=== PATIENT | male | born 1965 | race Caucasian/White ===

== ENCOUNTER 2020-03-24 02:20 | Emergency (ER) | payer SELFPAY ==
[2020-03-24] VITALS (10 sets, daily range): BP systolic 153–195; BP diastolic 101–114; PULSE 58–84; RESP 20; TEMP 36.9; O2SAT 90–96; BMI 32.1
[2020-03-24] MEDS: SODIUM CHLORIDE 0.9% 1,000 ML 1000 ML IV (02:41)
[2020-03-24] MEDS: PANTOPRAZOLE 40 MG VIAL IV (02:41)
[2020-03-24] MEDS: ONDANSETRON 4 MG/2 ML INJ IV (02:41)
--- NOTE | 2020-03-24 02:45 | ED_ITS ---
HPI - Nausea/Vomiting/Diarrhea General Chief complaint: Nausea/Vomiting/Diarrhea Stated complaint: Vomitting x2 hours Time Seen by Provider: 03/24/20 02:27 Source: patient Mode of arrival: Ambulatory Limitations: no limitations History of Present Illness HPI Narrative: Patient is a 54-year-old male with no past medical history presenting today with vomiting for the last few hours. He says he has been awake from was 24 hours but started vomiting just a few hours ago. He is dry heaving he has abdominal pain he is sweaty. No on else is sick. He was feeling well earlier in the day he has overall just tired. He has not been to a doctor in a while. He denies any diarrhea he has some epigastric pain but no other abdominal pain MD complaint: nausea and vomiting Onset (ago): hour(s) Description of Diarrhea: none Location of pain: epigastric Related Data Previous Rx's Medication Instructions Recorded ondansetron 4 mg PO Q8H PRN #10 tab 03/24/20 Allergies Allergy/AdvReac Type Severity Reaction Status Date / Time No Known Drug Allergies Allergy Verified 03/24/20 02:41 Review of Systems Review of Systems Narrative: GENERAL: Denies chills, fatigue, malaise, fever, sweats, travel HEENT: Denies sinus pain, ear pain, sore throat, difficulty swallowing, neck pain RESPIRATORY: Denies dyspnea, cough, wheezing, hemoptysis, sputum. CARDIOVASCULAR: Denies chest pain, palpitations, orthopnea, edema GASTROINTESTINAL: See HPI : Denies dysuria, frequency, incontinence, hematuria, urinary retention, flank pain. MUSCULOSKELETAL: Denies weakness, joint pain, or bony pain SKIN: No rash, no erythema, no pruritus NEUROLOGIC: Denies weakness, dizziness, headache, numbness, change in speech, confusion PSYCHIATRIC: No concerning psychosocial issues. 12 point review of systems is negative except for those stated above and HPI Patient History Medical History (Updated 03/24/20 @ 06:52 by Elaine Zayas DO) Patient denies medical problems Substance Use Type: marijuana (Daily) Exam Initial Vital Signs Initial Vital Signs: Vital Signs Temperature 98.4 F 03/24/20 02:30 Pulse Rate 74 03/24/20 02:30 Respiratory Rate 20 03/24/20 02:30 Blood Pressure 153/101 H 03/24/20 02:30 Pulse Oximetry 95 03/24/20 02:30 GENERAL: Actively dry heaving slightly diaphoretic and in no acute distress. HEENT: Head atraumatic,EOMI, pupils reactive, face symmetric, moist mucous membranes CARDIOVASCULAR: Regular rate and rhythm without murmurs, rubs or gallops. RESPIRATORY: Breath sounds equal bilaterally, no wheezes rales or rhonchi. ABDOMEN: Soft, nontender. Normoactive bowel sounds all 4 quadrants. No guarding or rebound. EXTREMITIES: Normal range of motion, no clubbing or edema. Neurovascularly intact NEUROLOGICAL: Alert and oriented x4.Normal gait and speech. Cranial nerves II through XII grossly intact. SKIN: Warm, dry, no laceration, no petechiae, no rashes or lesions. Course Orders Ordered: ED Orders 03/24/20 02:35 Complete Blood Count AUTO DIFF Stat Comprehensive Metabolic Panel Stat Lactate (Lactic Acid) Stat Lipase Stat Pathologist Review (for CBC) Stat Procalcitonin Stat 03/24/20 02:52 COVID19 Stat 03/24/20 03:00 CT abdomen pelvis w con Stat 03/24/20 03:15 Blood Culture Stat 03/24/20 03:39 XR chest 1V Stat 03/24/20 06:41 Miscellaneous to [facility] Stat Discontinued Medications Sodium Chloride (Normal Saline 0.9%) 1,000 mls @ 1,000 mls/hr IV BOLUS ONE Stop: 03/24/20 03:34 Last Infusion: 03/24/20 04:27 Dose: 0 mls/hr Documented by: Admin: 03/24/20 02:41 Dose: 1,000 mls/hr Documented by: ROSELYN Lorazepam (Lorazepam 2 Mg/Ml Inj) 1 mg IV NOW ONE Stop: 03/24/20 02:49 Last Admin: 03/24/20 02:51 Dose: 1 mg Documented by: ROSELYN Metoclopramide HCl (Metoclopramide 10 Mg/2 Ml Inj) 10 mg IV NOW ONE Stop: 03/24/20 05:10 Last Admin: 03/24/20 05:13 Dose: 10 mg Documented by: TENNILLE Ondansetron HCl (Ondansetron 4 Mg/2 Ml Inj) 4 mg IV NOW ONE Stop: 03/24/20 02:36 Last Admin: 03/24/20 02:41 Dose: 4 mg Documented by: ROSELYN Pantoprazole Sodium (Pantoprazole 40 Mg Vial) 40 mg IV NOW ONE Stop: 03/24/20 02:36 Last Admin: 03/24/20 02:41 Dose: 40 mg Documented by: ROSELYN Vital Signs Vital signs: Vital Signs - 8 hr 03/24/20 02:30 03/24/20 02:55 03/24/20 03:00 Temperature 98.4 F Pulse Rate 74 58 L 70 Respiratory Rate 20 Blood Pressure 153/101 H 160/114 H Pulse Oximetry 95 90 L 92 03/24/20 03:30 03/24/20 05:22 03/24/20 05:30 Temperature Pulse Rate 61 67 69 Respiratory Rate Blood Pressure 175/105 H Pulse Oximetry 94 95 96 03/24/20 05:31 03/24/20 05:52 03/24/20 06:00 Temperature Pulse Rate 69 70 61 Respiratory Rate Blood Pressure 194/103 H 195/111 H Pulse Oximetry 95 96 94 03/24/20 06:31 Temperature Pulse Rate 84 Respiratory Rate Blood Pressure 182/108 H Pulse Oximetry 96 MDM - Nausea/Vomiting/Diarrhea Lab Data Attestation: I reviewed the patient's lab results. Result diagrams: 03/24/20 02:35 03/24/20 02:35 Labs: Lab Results 03/24/20 03/24/20 03/24/20 Range/Units 02:35 02:35 02:35 WBC 50.1 H* (4.5-11.0) X10^3/uL RBC 5.51 (4.5-5.9) X10^6/uL Hgb 16.4 (13.5-17.5) g/dL Hct 49.7 (41-53) % MCV 90.2 (80-100) fL MCH 29.7 (26-34) PG MCHC 33.0 (30-36) % RDW 13.9 (11.6-14.8) % Plt Count 254 (150-400) X10^3/uL Neut % (Auto) Not Reportable Lymph % (Auto) Not Reportable Logan % (Auto) Not Reportable Eos % (Auto) Not Reportable Baso % (Auto) Not Reportable Lymph # (Auto) Not Reportable Logan # (Auto) Not Reportable Baso # (Auto) Not Reportable Total Counted 100 Seg Neutrophils % 17.0 L (38-70) % Lymphocytes % (Manual) 79.0 H (25-45) % Atypical Lymphs % 3.0 H ( - 0) % Eosinophils % (Manual) 1.0 L (2-4) % Neutrophils # (Manual) 8517 H (2242-8035) /uL Smudge Cells 2+ H RBC Morphology Biology Teacher Sodium 141 (137-145) mmol/L Potassium 4.9 (3.4-5.1) mmol/L Chloride 109 H (98-107) mmol/L Carbon Dioxide 23 (22-32) mmol/L BUN 22 H (9-20) mg/dL Creatinine 1.33 H (0.66-1.25) mg/dL Estimated GFR 55.6 L (>60) mL/min BUN/Creatinine Ratio 16.5 (6-22) Glucose 130 H (70-100) mg/dL Lactate (0.7-2.1) mmol/L Calcium 9.9 (8.4-10.2) mg/dL Total Bilirubin 1.0 (0.2-1.3) mg/dL AST 41 (17-59) IU/L ALT 38 (<50) IU/L Alkaline Phosphatase 76 (38-126) U/L Total Protein 7.8 (6.3-8.2) g/dL Albumin 4.8 (3.5-5.0) g/dL Globulin 3.0 (1.7-4.1) g/dL Albumin/Globulin Ratio 1.6 (1.0-2.8) Lipase 220 (23-300) U/L Procalcitonin (<0.5) ng/mL COVID-19 PCR (Negative) 03/24/20 03/24/20 03/24/20 Range/Units 02:35 02:35 02:52 WBC (4.5-11.0) X10^3/uL RBC (4.5-5.9) X10^6/uL Hgb (13.5-17.5) g/dL Hct (41-53) % MCV (80-100) fL MCH (26-34) PG MCHC (30-36) % RDW (11.6-14.8) % Plt Count (150-400) X10^3/uL Neut % (Auto) Lymph % (Auto) Logan % (Auto) Eos % (Auto) Baso % (Auto) Lymph # (Auto) Logan # (Auto) Baso # (Auto) Total Counted Seg Neutrophils % (38-70) % Lymphocytes % (Manual) (25-45) % Atypical Lymphs % ( - 0) % Eosinophils % (Manual) (2-4) % Neutrophils # (Manual) (3509-8196) /uL Smudge Cells RBC Morphology Sodium (137-145) mmol/L Potassium (3.4-5.1) mmol/L Chloride (98-107) mmol/L Carbon Dioxide (22-32) mmol/L BUN (9-20) mg/dL Creatinine (0.66-1.25) mg/dL Estimated GFR (>60) mL/min BUN/Creatinine Ratio (6-22) Glucose (70-100) mg/dL Lactate 2.7 H (0.7-2.1) mmol/L Calcium (8.4-10.2) mg/dL Total Bilirubin (0.2-1.3) mg/dL AST (17-59) IU/L ALT (<50) IU/L Alkaline Phosphatase (38-126) U/L Total Protein (6.3-8.2) g/dL Albumin (3.5-5.0) g/dL Globulin (1.7-4.1) g/dL Albumin/Globulin Ratio (1.0-2.8) Lipase (23-300) U/L Procalcitonin < 0.05 (<0.5) ng/mL COVID-19 PCR Negative (Negative) 03/24/20 Range/Units 05:25 WBC (4.5-11.0) X10^3/uL RBC (4.5-5.9) X10^6/uL Hgb (13.5-17.5) g/dL Hct (41-53) % MCV (80-100) fL MCH (26-34) PG MCHC (30-36) % RDW (11.6-14.8) % Plt Count (150-400) X10^3/uL Neut % (Auto) Lymph % (Auto) Logan % (Auto) Eos % (Auto) Baso % (Auto) Lymph # (Auto) Logan # (Auto) Baso # (Auto) Total Counted Seg Neutrophils % (38-70) % Lymphocytes % (Manual) (25-45) % Atypical Lymphs % ( - 0) % Eosinophils % (Manual) (2-4) % Neutrophils # (Manual) (9161-4726) /uL Smudge Cells RBC Morphology Sodium (137-145) mmol/L Potassium (3.4-5.1) mmol/L Chloride (98-107) mmol/L Carbon Dioxide (22-32) mmol/L BUN (9-20) mg/dL Creatinine (0.66-1.25) mg/dL Estimated GFR (>60) mL/min BUN/Creatinine Ratio (6-22) Glucose (70-100) mg/dL Lactate 2.6 H (0.7-2.1) mmol/L Calcium (8.4-10.2) mg/dL Total Bilirubin (0.2-1.3) mg/dL AST (17-59) IU/L ALT (<50) IU/L Alkaline Phosphatase (38-126) U/L Total Protein (6.3-8.2) g/dL Albumin (3.5-5.0) g/dL Globulin (1.7-4.1) g/dL Albumin/Globulin Ratio (1.0-2.8) Lipase (23-300) U/L Procalcitonin (<0.5) ng/mL COVID-19 PCR (Negative) Urine Dip Bedside Urine Glucose Negative Bedside Urine Bilirubin - Negative Bedside Urine Ketone - Negative Urine Specific [place] 1.020 Bedside Urine Occult Blood - Negative Bedside Urine pH 6 Bedside Urine Protein - Negative Bedside Urine Urobilinogen - Negative Bedside Urine Nitrite - Negative Bedside Urine Leukocytes - Negative Esterase Imaging Data CT scan - abdomen/pelvis: Radiologist's Impression: Preliminary report large diameter appendix is li isacc normal variant no inflammatory changes are evident. Slightly high-riding testicle. Otherwise no acute findings. Chest x-ray: Radiologist's Impression: Probable slight scarring MDM Narrative Medical decision making narrative: 6:[address] Bellamy hematology [facility] has been updated on patient's test results and symptoms. At this time he thinks this is likely chronic lymphocytic leukemia. Recommends outpatient follow-up with flow cytometry. I have relayed this information to the patient. He now reports that he has a doctor in [place] who follows his blood work, he has not seen them in a very long time though. His nausea and vomiting is much better. The they are visiting from out of town plan going back today. At this time symptoms are likely consistent with acute vomiting possible cyclic vomiting. Overall feeling much better after Ativan and anti nausea medication. Elevated leukocytosis is likely related to CLL recommend outpatient follow-up. I discussed all findings with the patient and spouse, Education has been performed regarding treatment plan, diagnosis, warning signs and symptoms and all concerns have been addressed. Verbally agree with and understood all of the above. Discharge Plan Departure Patient Disposition: Home Clinical Impression: Chronic lymphocytic leukemia Vomiting Qualifiers: Vomiting type: unspecified Vomiting Intractability: non-intractable Nausea presence: without nausea Qualified Code(s): R11.11 - Vomiting without nausea Instructions: Chronic Lymphocytic Leukemia, DI for Vomiting -- Adult Activity Restrictions/Additional Instructions: *You have been diagnosed with chronic lymphocytic leukemia and vomiting *What to do: It is imperative that you follow up with a fact checker/oncologist or primary care provider Your WBC count today was 50,000 Recommend increasing fluid intake as tolerated. Recommend clear fluids for now like Gatorade or Gatorade like substance *Continue to take medications as directed Zofran 4 mg every 8 hours if needed for nausea or vomiting--> sent to [facility] in [place] *Follow up with your primary care provider in 2-3 days *Return to ER if you should have persistent vomiting inability keep anything fariha n, increased pain or any new, worsening or concerning symptoms Prescriptions: New ondansetron 4 mg tablet,disintegrating 4 mg PO Q8H PRN (Reason: nausea and vomiting) Qty: 10 RF: 0
[2020-03-24] MEDS: LORazepam 2 MG/ML INJ 1 MG IV (02:51)
[2020-03-24 02:55] LABS: Alanine Aminotransferase 38 IU/L (<50); Albumin 4.8 g/dL (3.5-5.0); Albumin Globulin Ratio 1.6 (1.0-2.8); Alkaline Phosphatase 76 U/L (38-126); Aspartate Aminotransferase 41 IU/L (17-59); BUN Creatinine Ratio 16.5 (6-22); Blood Urea Nitrogen 22 mg/dL (9-20); Calcium 9.9 mg/dL (8.4-10.2); Carbon Dioxide 23 mmol/L (22-32); Chloride 109 mmol/L (98-107); Estimated Glomerular Filt Rate 55.6 mL/min (>60); Glucose 130 mg/dL (70-100); HEMOLYSIS 63 (0-50); Potassium 4.9 mmol/L (3.4-5.1); Sodium 141 mmol/L (137-145); Total Protein 7.8 g/dL (6.3-8.2)
[2020-03-24 02:56] LABS: Hematocrit 49.7 % (41-53); Hemoglobin 16.4 g/dL (13.5-17.5); Mean Corpuscular Hemoglobin 29.7 PG (26-34); Mean Corpuscular Volume 90.2 fL (80-100); Platelet Count 254 X10^3/uL (150-400); Red Blood Cell Count 5.51 X10^6/uL (4.5-5.9); Red Cell Distribution Width 13.9 % (11.6-14.8)
[2020-03-24 02:58] LABS: Add Manual Diff / Slide Review YES
[2020-03-24 02:59] LABS: Lipase 220 U/L (23-300); White Blood Cell Count 50.1 X10^3/uL (4.5-11.0)
--- NOTE | 2020-03-24 03:00 | DI.CT.S_ITS ---
PROCEDURE: CT ABDOMEN PELVIS W CON INDICATIONS: vomiting TECHNIQUE: After the administration of intravenous contrast, 5 mm thick sections acquired from the diaphragm to the symphysis. 5 mm coronal and sagittal reformats were acquired. For radiation dose reduction, the following was used: automated exposure control, adjustment of mA and/or kV according to patient size. COMPARISON: [facility], CR, XR CHEST 1V, 03/24/2020, 3:43. FINDINGS: Image quality: This examination is limited by involuntary motion artifact. ABDOMEN: Lung bases: Lung bases are clear. Heart size is normal. Solid organs: Liver is normal in size and enhancement. Gallbladder wall is not thickened. Biliary system is non dilated. Pancreas enhances normally. Spleen is normal in size and enhancement. No adrenal nodules. Kidneys demonstrate normal size and enhancement, without hydronephrosis. A nonobstructing 3 mm right kidney stone is incidentally noted. Peritoneum and bowel: Bowel loops demonstrate normal wall thickness and caliber. No free fluid or air. An elongated, yet noninflamed appendix can be seen. The appendix measures up to 9 mm in caliber. Nodes and vessels: No retroperitoneal or mesenteric adenopathy by size criteria. Aorta and inferior vena cava are normal in size. Miscellaneous: A mild periumbilical hernia is seen, containing fat. PELVIS: Genitourinary: Bladder wall thickness is normal. The right testicle is high-riding. Miscellaneous: No enlarged inguinal or pelvic lymph nodes are seen. There is a fat-containing right inguinal hernia seen. Bones: No suspicious bony lesions. No vertebral body compression fractures. Focal L5-S1 degenerative change is seen. Milder degenerative changes are seen elsewhere. IMPRESSION: No imaging explanation is found for this patient's presenting symptoms. The appendix is elongated and prominent in size, yet no surrounding inflammatory changes are seen. This is regarded to be a normal variant. However, please correlate with localizing symptoms. Incidental note is made of: Nonobstructing right-sided kidney stone Fat containing periumbilical hernia Focal L5-S1 degenerative change Fat containing right inguinal hernia High-riding right testicle Note: No significant discrepancy from the preliminary report. Dictated by: Shaun Macias M.D. on 03/24/2020 at 7:46 Approved by: Shaun Macias M.D. on 03/24/2020 at 7:50
[2020-03-24 03:18] LABS: COVID19 -Nasal RAPID Negative (Negative)
[2020-03-24 03:21] LABS: Lactate (Lactic Acid) 2.7 mmol/L (0.7-2.1)
[2020-03-24 03:23] LABS: Neutrophils Absolute Manual 8517 /uL (3000-5900); Smudge Cells 2+; Total Cells Counted 100
--- NOTE | 2020-03-24 03:39 | DI.RAD.S_ITS ---
PROCEDURE: XR CHEST 1V INDICATIONS: very high wbc with vomiting TECHNIQUE: One view of the chest was acquired. COMPARISON: [facility], CT, CT ABDOMEN PELVIS W CON, 03/24/2020, 3:09. FINDINGS: Surgical changes and devices: None. Lungs and pleura: An incomplete inspiratory result is noted, causing a crowded appearance to the lung markings. No focal infiltrates are seen. No pneumothorax or significant pleural effusions are seen. Mediastinum: Mediastinal contours appear normal. Heart size is normal. Bones and chest wall: No suspicious bony lesions. Overlying soft tissues appear unremarkable. IMPRESSION: Portable chest within normal limits. Note: No significant discrepancy from the preliminary report. Dictated by: Shaun Macias M.D. on 03/24/2020 at 7:50 Approved by: Shaun Macias M.D. on 03/24/2020 at 7:51
[2020-03-24 04:59] LABS: Procalcitonin < 0.05 ng/mL (<0.5)
[2020-03-24 05:12] LABS: Reflexed Lactate in 2 Hours Y
[2020-03-24] MEDS: METOCLOPRAMIDE 10 MG/2 ML INJ IV (05:13)
[2020-03-24 05:40] LABS: Lactate 2HR (Lactic Acid Rflx) 2.6 mmol/L (0.7-2.1)
== END 2020-03-24 06:57 | disposition home or self-care (01) ==
PROVIDERS: Emergency Provider Emergency Medicine
DX: C91.10 Chronic lymphocytic leukemia of B-cell type not having achieved remission (principal); R11.2 Nausea with vomiting, unspecified; Z20.828 Contact with and (suspected) exposure to other viral communicable diseases
CPT/HCPCS: 36415; 71045; 74177; 80053; 81003; 83605; 83690; 84145; 85007; 85025; 87040; 87635; 96361; 96374; 96375; 99284; C9113; J2060; J2405; J2765; Q9967